=== PATIENT | male | born 1985 | race Caucasian/White ===

== ENCOUNTER 2016-09-08 20:16 | Emergency (ER) | payer MEDICAID ==
[2016-09-08 21:25] VITALS: BMI 19.2
[2016-09-08 21:26] VITALS: TEMP 98.5
--- NOTE | 2016-09-08 22:18 | DIRPT ---
CLINICAL DATA: Left shoulder pain after fall. Slip and fall on ice. EXAM: LEFT SHOULDER - 2+ VIEW COMPARISON: None. FINDINGS: No fracture or dislocation. The alignment and joint spaces are maintained. No focal soft tissue abnormality. IMPRESSION: No fracture or subluxation of the left shoulder. Electronically Signed By: Leann Dixon M.D. On: 09/08/2016 22:16
[2016-09-08 22:19] VITALS: PULSE 85
--- NOTE | 2016-09-08 22:19 | DIRPT ---
CLINICAL DATA: Left axillary rib pain after slip and fall on ice. EXAM: LEFT RIBS AND CHEST - 3+ VIEW COMPARISON: None. FINDINGS: The cortical margins of the left ribs are intact. No fracture or destructive rib lesion. The cardiomediastinal contours are normal. The lungs are clear. No consolidation, pleural effusion, or pneumothorax. IMPRESSION: Intact left ribs without acute fracture. Electronically Signed By: Leann Dixon M.D. On: 09/08/2016 22:17
--- NOTE | 2016-09-08 22:24 | EDPRACDOC ---
- General Chief Complaint: Fall Stated Complaint: FALL ON ICE Time Seen by Provider: 09/08/16 22:18 Information Source: Patient - History of Present Illness Onset: 2 hours HPI: Pt states he slipped on ice and fell tonight around 8. C/o L posterior rib pain. Denies LOC, vision changes, n/v, cp, sob, abd pain, loss of control bowel or bladder, wounds. Pain Severity: Reports: Moderate Injuries/Pain Location: Reports: chest Reason for Fall: Reports: slipped Loss of Consciousness: no loss of consciousness Modifying Factors: worse with: cold therapy, immobilization, jarring, movement, pain medication, rest, other Associated Symptoms (Fall): Reports: other (rib pain) Allergies/Adverse Reactions: Allergies Penicillins Allergy (Severe, Verified 09/08/16 21:26) Hives* Home Medications: Ambulatory Orders Oxycodone HCl [Oxycodone Immediate Release Capsule] 5 - 15 mg PO Q4-6H PRN #50 cap 05/21/14 Promethazine [Phenergan] 25 mg PO Q6 PRN #20 tab 05/21/14 Oxycodone Immediate Release [Oxy-Ir] 5 mg PO Q4H PRN #30 tab 05/24/14 Cyclobenzaprine HCl [Flexeril] 10 mg PO TID PRN #15 tablet 09/08/16 Hydrocodone Bit/Acetaminophen [Lortab 5/325] 1 tab PO Q4-6H PRN #15 tab ED Past Medical History - History Reviewed Yes Nurses notes reviewed and agree except as marked - Patient Medical History Psychological History: Denies: Depression - Social Medical History Smoking Status: Heavy tobacco smoker (5 or more cigarettes/day or daily pipe/ cigar) ETOH: None Substance Abuse: None EDM Review of Systems - Review of Systems Constitutional: No Symptoms Reported. negative: Fever, Chills, Weakness, Fatigue, Loss of Appetite Eyes: No Symptoms Reported. negative: Redness, Blurred Vision, Double Vision, Discharge, Pain, Light Sensitive, Photophobia Respiratory: No Symptoms Reported. negative: Cough, Brassy Cough, Barky Cough, Shortness of Breath, Wheezing, Hemoptysis Cardiovascular: No Symptoms Reported. negative: Chest Pain, Palpitations, Syncope, Edema, Orthopnea, PND, Skin Mottling, Cyanosis Gastrointestinal: No Symptoms Reported. negative: Pain, Constipation, Nausea, Vomiting, Diarrhea, Melena, Formula Intolerance Genitourinary: No Symptoms Reported. negative: Dysuria, Hematuria, Frequency, Discharge, Bleeding, Testicular Pain, Neurological: No Symptoms Reported. negative: Headache, Dizziness, Seizure, Numbness, Weakness, Speech Difficulty, Gait Difficulty Musculoskeletal: Ribs Integumentary: No Symptoms Reported. negative: Itching, Rash, Bruising, Wound Allergic/Immunologic: No Symptoms Reported. negative: Hives, Itching Hematologic: No Symptoms Reported. negative: Lymphadenopathy, Easy Bruising, Easy Bleeding Psychiatric: No Symptoms Reported. negative: Anxiety, Depression, Hallucinations, Insomnia, Suicidal - Physical Exam Constitutional: Alert Oriented to: Time, Person, Place Last recorded Vital Signs: Last Vital Signs Temp 98.5 F 09/08/16 21:25 Pulse 85 09/08/16 22:18 Resp 20 09/08/16 22:18 BP 115/62 09/08/16 22:18 Pulse Ox 97 09/08/16 22:18 Oxygen Pulse Oxygen Saturation 97 O2 Device Room Air Oxygen Flow Rate Fraction of Inspired Oxygen ( FIO2) - HEENT Head: Normal ( normocephalic) Eye Exam: Normal (PERRL, EOMI, Sclera white) Neck: Normal (FROM, trachea at midline) - Respiratory/Cardiovascular Respiratory: Normal - CTA (BBS clear to auscultation without adventitious sounds ) Cardiovascular: Normal (RRR without murmur, gallop or rub) - GI Auscultation: Normal (NABS) Palpation: Normal (Soft,No rebound or guarding, non distended) Tenderness: Non tender, Other (no LUQ or ruq tenderness) Gamez's Sign: Negative - Musculoskeletal Back: Normal (Non-Tender) Extremities: Normal (Normal tone, Pulses 2+ No cyanosis or edema, FROM) - Integumentary Skin: Normal, Warm, Dry Lymphatics: Normal (no adenopathy) - Neurologic Memory Impaired: Normal Motor Function: Normal (Normal tone, Pulses 2+ No cyanosis or edema, FROM) Mood Description: Normal Perception: Normal ED Injury/Fall Exam - Physical Exam Head Injury: no evidence of injury Extremity Exam: no evidence of injury, normal range of motion, non-tender, no pedal edema Skin: Normal, Warm, Dry - [place] Coma Score Best Eye Response ([place]): (4) open spontaneously Best Verbal Response ([place]): (5) oriented Best Motor Response ([place]): (6) obeys commands [place] Total: 15 - Differential Diagnosis Contusion, Fracture, Mechanical Fall, Sprain, Strain - Diagnostic Imaging Shoulder Image interpreted by: Radiologist IMPRESSION: No fracture or subluxation of the left shoulder. Chest Image interpreted by: Radiologist IMPRESSION: Intact left ribs without acute fracture. Decision Time to Discharge: 22:23 - Departure Disposition: Home Condition: Good Final Diagnosis: Accidental fall Contusion of rib on left side Qualifiers: Encounter type: initial encounter Qualified Code(s): S20.212A - Contusion of left front wall of thorax, initial encounter Instructions: RICE: Routine Care for Injuries, Rib Contusion (ED) Education/Counseling Given To: Patient Education/Counseling Given Regarding: Diagnosis, Treatment, Follow Up Referrals: None,No Provider [Primary Care Provider] - One Week Rina Branch MD [Staff Physician] - One Week Prescriptions: Cyclobenzaprine HCl [Flexeril] 10 mg PO TID PRN #15 tablet PRN Reason: Pain Hydrocodone Bit/Acetaminophen [Lortab 5/325] 1 tab PO Q4-6H PRN #15 tab PRN Reason: Pain Additional Instructions: Return for worse or different symptoms.
[2016-09-08 22:31] VITALS: BP 117/65
== END 2016-09-08 22:32 | disposition home or self-care (01) ==
LOC: ED 20:16
DX: S20.212A Contusion of left front wall of thorax, initial encounter (principal); W01.0XXA Fall on same level from slipping, tripping and stumbling without subsequent striking against object, initial encounter
CPT/HCPCS: 99283